=== PATIENT | female | born 1975 | race Caucasian/White ===

== ENCOUNTER → 2018-10-18 | Outpatient (CLI) | payer SELFPAY ==
--- NOTE | 2018-10-18 13:25 | Diagnostic Imaging Report ---
CLINICAL INDICATION: Cyanosis of the toe. COMPARISON: None. RESTING PRESSURES: Brachial: Right: 161 mmHg Left: 174 mmHg Posterior Tibial: Right: 197 mmHg Left: 189 mmHg Dorsal pedis: Right: 157 mmHg Left: 189 mmHg Right toe digit: Right: 100 mmHg Left: 135 mmHg The right ankle/arm index is 1.13. The left is 1.09. Normal is considered greater than or equal to 0.85. IMPRESSION: The ankle/arm indices are normal at rest bilaterally. Dictated by: Dictated on workstation # [id number]
== END ==
LOC: RAD 10:17
PROVIDERS: ATTEND Registered Nurse
DX: R23.0 Cyanosis (principal)
CPT/HCPCS: 93923